=== PATIENT | female | born 1945 | race Caucasian/White ===

== ENCOUNTER 2019-09-28 13:21 | Observation (INO) ==
[2019-09-28] MEDS ORDERED: ONDANSETRON 4 MG/2 ML VIAL IV STA (13:41)
[2019-09-28] MEDS ORDERED: KETOROLAC 30 MG/1 ML VIAL IV STA (13:41)
[2019-09-28] MEDS ORDERED: amLODIPine 5 MG TABLET PO STA (13:46)
[2019-09-28 14:14] LABS: Basophils # 0.1 10*3/uL (0.0-0.2); Basophils % 0.6 % (0.0-0.8); Eosinophils # 0.2 10*3/uL (0.0-0.87); Eosinophils % 2.8 % (0.00-10.9); Hematocrit 39.6 VOL% (35.7-47.0); Hemoglobin 12.9 GM/DL (12.0-16.0); Immature Granulocytes % 0.4 %; Immature Granulocytes Absolute 0.03 #; Lymphocytes # 1.9 10*3/uL (1.4-4.0); Lymphocytes % 24.2 % (21.3-54.2); Mean Corpuscular HGB Conc 32.6 GM/DL (32-36); Mean Corpuscular Volume 91.5 FL (87-102); Mean Platelet Volume 11.5 FL (9.6-12.0); Platelet Count 279 T/CUMM (130-400); Red Blood Count 4.33 MC/CUMM (3.8-5.5); Red Cell Distribution Width 13.1 % (9.3-17.3); White Blood Count 7.7 T/CUMM (4-12)
[2019-09-28 14:43] LABS: Apearance,Urine CLOUDY (Clear); Bacteria,Urine Occasional /HPF (Few); Bilirubin,Urine Negative (Negative); Blood, Urine Small mg/dL (Negative); Glucose,Urine (UA) Negative (Negative); Ketones,Urine Negative (Negative); Mucus,Urine Occasional /LPF (Occasional); Nitrite,Urine Negative (Negative); Protein,Urine Negative; RBC,Urine 2 /HPF (0-4); Squamous Epithelial Cell,Urine Occasional /HPF (0-10); Urine Color Yellow (Yellow); Urine Urobilinogen < 2.0 EU/DL (0.2-1.0); WBC,Urine 211 /HPF (0-6)
[2019-09-28] MEDS ORDERED: CIPROFLOXACIN 500 MG TABLET PO STA (14:47)
[2019-09-28 14:49] LABS: Alanine Aminotransferase 18 U/L (13-56); Albumin 3.4 G/DL (3.4-5.0); Alkaline Phosphatase 127 U/L (45-117); Aspartate Amino Transferase 16 U/L (0-37); Blood Urea Nitrogen 13 MG/DL (7-18); Calcium 8.4 MG/DL (8.5-10.1); Estimated Glom Filtration Rate 72 ML/MIN; Glucose 92 MG/DL (74-106); Total Protein 7.3 G/DL (6.4-8.3)
[2019-09-28 14:51] LABS: Troponin I 0.054 NG/ML (0.00-0.045)
[2019-09-28] MEDS ORDERED: ASPIRIN 325 MG TABLET PO STA (15:31)
[2019-09-28] MEDS ORDERED: NITROGLYCERIN 2% OINT 1 INCH/GM PACK TOP STA (15:31)
[2019-09-28] MEDS ORDERED: ACETAMINOPHEN 500 MG TABLET PO STA (15:55)
[2019-09-28] MEDS ORDERED: ACETAMINOPHEN 500 MG TABLET ONE (15:56)
[2019-09-28] MEDS ORDERED: guaiFENesin/DM ER 600-30 MG TABLET PO PRN (16:02)
[2019-09-28] MEDS ORDERED: traZODone 50 MG TABLET PO PRN (16:02)
[2019-09-28] MEDS ORDERED: ACETAMINOPHEN 325 MG TABLET PO PRN (16:02)
[2019-09-28] MEDS ORDERED: BISACODYL 5 MG TABLET PO PRN (16:02)
[2019-09-28] MEDS ORDERED: ONDANSETRON 4 MG/2 ML VIAL IV PRN (16:02)
[2019-09-28] MEDS ORDERED: CYANOCOBALAMIN 500 MCG TABLET PO PRN (16:07)
[2019-09-28] MEDS ORDERED: hydrALAZINE 20 MG/1 ML VIAL IV PRN (16:08)
[2019-09-28 16:09] LABS: Partial Thromboplastin Time 25.4 SECS (20.8-36.0)
[2019-09-28] MEDS ORDERED: FUROSEMIDE 40 MG/4 ML VIAL IV ONE (16:19)
[2019-09-28] MEDS ORDERED: FUROSEMIDE 40 MG/4 ML VIAL IV SCH (16:30)
[2019-09-28] MEDS ORDERED: oxyCODONE IR 5 MG TABLET PO PRN (16:45)
[2019-09-28] MEDS ORDERED: cefTRIAXone 1,000 MG in SYRINGE 1 EACH IV SCH (17:00)
[2019-09-28 20:25] LABS: Risk Ratio 3.49; VLDL CHOLESTEROL 26.4 MG/DL
[2019-09-28] MEDS ORDERED: MONTELUKAST 10 MG TABLET PO SCH (21:00)
[2019-09-28] MEDS: METOPROLOL TARTRATE 25 MG TABLET PO SCH (21:33)
[2019-09-28] MEDS: COENZYME Q10 100 MG CAPSULE PO SCH (21:34)
[2019-09-29 02:00] LABS: Calcium 7.9 MG/DL (8.5-10.1); Osmolality,Calculated 289.8 MOS/KG (273-304)
[2019-09-29] MEDS ORDERED: MAGNESIUM SULF RIDER 4 GM in PREMIX 1 EACH IV PRN (07:06)
[2019-09-29] MEDS ORDERED: MAGNESIUM SULF RIDER 2 GM in PREMIX 1 EACH IV PRN (07:06)
[2019-09-29] MEDS: COENZYME Q10 100 MG CAPSULE PO SCH (08:32)
[2019-09-29] MEDS: METOPROLOL TARTRATE 25 MG TABLET PO SCH (08:32)
[2019-09-29] MEDS: POTASSIUM CHLORIDE 20 MEQ TABLET PO PRN ×4 (08:33→14:49)
[2019-09-29] MEDS ORDERED: ASPIRIN EC 81 MG TABLET PO SCH (09:00)
[2019-09-29] MEDS ORDERED: CETIRIZINE 10 MG TABLET PO SCH (09:00)
[2019-09-29] MEDS ORDERED: LOSARTAN 50 MG TABLET PO SCH ×2 (09:00→21:00)
[2019-09-29] MEDS ORDERED: PANTOPRAZOLE 40 MG TABLET PO SCH (09:00)
[2019-09-29] MEDS ORDERED: ROSUVASTATIN 10 MG TABLET PO SCH (09:00)
[2019-09-29 12:06] VITALS: BP 162/75
[2019-09-29] MEDS ORDERED: amLODIPine 10 MG TABLET PO ONE (14:33)
[2019-09-29] MEDS ORDERED: POTASSIUM CHLORIDE 20 MEQ TABLET PO ONE (14:33)
== END 2019-09-29 16:15 | disposition home or self-care (01) ==
LOC: EDBD → EDUNIT# → N.ED 13:21 → N.EDINP 13:21 → N.TELES 16:51
PROVIDERS: ADMIT Internal Medicine; ATTEND Internal Medicine